=== PATIENT | female | born 1965 | race Caucasian/White ===

== ENCOUNTER 2022-01-09 19:50 | Emergency (ER) | payer OTHER ==
[~2022-01-09] VITALS: Ht 165 cm; Wt 113.0 kg
[2022-01-09] MEDS ORDERED: TETANUS,DIPTH,PERTUSS P/F (BOOSTRIX) 0.5 ML VIAL IM ONE (20:15)
[2022-01-09] MEDS ORDERED: CIPROFLOXACIN 500 MG (CIPRO) TABLET PO SCH (20:15)
[2022-01-09] MEDS ORDERED: CIPR500T5 PO (20:24)
--- NOTE | 2022-01-09 20:25 | ED Integumentary General ---
General Chief Complaint: Skin/Wound Problems Stated Complaint: LEFT FOOT INJURY Nursing Triage Note: patient stepped on a nail, puncture noted bottom of left foot. patient cleansed with Hydrogen Peroxide and placed a bandaide. patient states 30 years since tetanus Source: patient Exam Limitations: no limitations History of Present Illness Date Seen by Provider: Jan 09, 2022 Time Seen by Provider: 19:50 Initial Comments Patient is a 56-year-old female presents with plantar puncture wound to her left forefoot. Patient walked on finish nail, which punctured her tennis shoe. Reports only minimal pain. Nail was removed intact. Injury occurred just prior to ED arrival patient washed foot with hydrogen peroxide. Date of last tetanus is greater than 30 years. No other symptoms or complaints Timing/Duration: just prior to arrival Severity: mild Location: feet Possible Cause: other Allergies and Home Medications Allergies Coded Allergies: No Known Drug Allergies (Unverified , 01/09/22) Patient Home Medication List Home Medication List Reviewed: Yes Review of Systems Review of Systems Constitutional: see HPI Musculoskeletal: see HPI Past [id number]-[id number] Hx Patient Social History Tobacco Use?: No Immunizations Up To Date First/Initial COVID19 Vaccinat: na Physical Exam Vital Signs Vital Signs - First Documented 01/09/22 20:00 Temp 36.9 Pulse 82 Resp 18 B/P (MAP) 139/81 (100) Pulse Ox 99 O2 Delivery Room Air Capillary Refill : Less Than 3 Seconds General Appearance: no apparent distress Skin: other (Single puncture wound, right central distal forefoot between proximal to second interphalangeal webspace. No active bleeding, minimal swelling appreciated) Progress/Results/Core Measures Results/Orders My Orders Orders - NIKKI GRAHAM DO Ciprofloxacin Tablet (Cipro Tablet) (01/09/22 20:15) Dipht,Pertuss(Acell),Tet Adult (Boostrix (01/09/22 20:15) Vital Signs/I&O 01/09/22 20:00 Temp 36.9 Pulse 82 Resp 18 B/P (MAP) 139/81 (100) Pulse Ox 99 O2 Delivery Room Air Blood Pressure Mean: 100 Departure Communication (Admissions) Tetanus updated, antibiotics and pain medication given. Recommend patient's for continued therapeutic supportive care and home monitoring with PCP follow-up as needed. Return precautions reviewed. Patient verbalizes understanding agreement with discharge instructions prior to departure. Impression Primary Impression: Puncture wound of plantar aspect of left foot Disposition: HOME, SELF-CARE Condition: Stable Departure-Patient Inst. Decision time for Depature: 20:23 Referrals: NO,LOCAL PHYSICIAN (PCP) Primary Care Physician Patient Instructions: Wound Care (DC) Add. Discharge Instructions: You were evaluated in the emergency department for nail puncture wound to your left foot. Please take ibuprofen for pain and fill antibiotics in the morning and take as directed. Follow-up with your PCP in 5 to 7 days if symptoms persist. Return to the ED if signs of worsening infection. All discharge instructions reviewed with patient and/or family. Voiced understanding. Scripts Ciprofloxacin HCl (Ciprofloxacin HCl) 500 Mg Tablet 500 MG PO BID, #14 TAB Prov: NIKKI GRAHAM DO 01/09/22 NIKKI GRAHAM DO Jan 09, 2022 20:25
[2022-01-09 20:54] VITALS: BP 139/81
== END 2022-01-09 20:54 | disposition home or self-care (01) ==
LOC: ER FS 19:54
DX: S91.332A Puncture wound without foreign body, left foot, initial encounter (principal); Z23 Encounter for immunization; Z28.310 Unvaccinated for COVID-19; W45.0XXA Nail entering through skin, initial encounter; Y93.01 Activity, walking, marching and hiking
CPT/HCPCS: 90715; 99284